=== PATIENT | female | born 1970 | race Caucasian/White ===

== ENCOUNTER 2017-07-16 21:33 | Emergency (ER) | payer OTHER ==
[2017-07-17] MEDS: ONDANSETRON (ODT) 4 MG TAB ODT (04:39)
== END 2017-07-17 06:31 | disposition home or self-care (01) ==
LOC: FTE 21:33
DX: R11.2 Nausea with vomiting, unspecified (principal)
CPT/HCPCS: 99283; Z7502

== ENCOUNTER 2018-01-14 09:36 | Day surgery (SDC) | payer OTHER ==
[2018-01-14] MEDS ORDERED: PROPOFOL 40 ML (11:51)
== END 2018-01-14 12:12 | disposition home or self-care (01) ==
LOC: GIL 09:36
DX: C18.7 Malignant neoplasm of sigmoid colon (principal); K29.50 Unspecified chronic gastritis without bleeding; B96.81 Helicobacter pylori [H. pylori] as the cause of diseases classified elsewhere; K21.9 Gastro-esophageal reflux disease without esophagitis; E78.5 Hyperlipidemia, unspecified
CPT/HCPCS: 43239; 88305; 88312

== ENCOUNTER 2018-04-01 10:23 | Inpatient (IN) | payer OTHER ==
[~2018-04-01 10:23] MED LIST: CEFAZOLIN 1 GM INJ
[2018-04-01] MEDS ORDERED: LACTATED RINGER'S 1,000 ML IV (12:30)
[2018-04-01] MEDS ORDERED: SOD CHLORIDE 0.9% 1,000 ML IV (12:30)
[2018-04-01] MEDS: metroNIDAZOLE 500 MG/NS (PMX) 100 ML IVPB ×2 (13:00→20:50)
[2018-04-01] MEDS ORDERED: BUPIVACAINE 0.25% (MPF) 30 ML INJ (13:18)
[2018-04-01] MEDS ORDERED: MIDAZOLAM 1 MG/ML 2 ML INJ (13:40)
[2018-04-01] MEDS ORDERED: FENTAnyl 50 MCG/ML VIAL (13:40)
[2018-04-01] MEDS ORDERED: ROPIVACAINE 0.2% 20 ML VIAL (13:40)
[2018-04-01] MEDS ORDERED: morphine SULFATE/PF (10 MG/10 ML) INJ (13:54)
[2018-04-01] MEDS: CEFAZOLIN 2 GM/50 ML (PMX) 50 ML (FOR WT < 120 KG) IVPB (14:15)
[2018-04-01] MEDS ORDERED: PHENYLephrine (100 MCG/ML) 5ML SYG (14:23)
[2018-04-01] MEDS ORDERED: ROCURONIUM 50 MG INJ (15:34)
[2018-04-01] MEDS ORDERED: SUGAMMADEX SODIUM 200 MG/2 ML VIAL IV (15:34)
[2018-04-01] MEDS ORDERED: LIDOCAINE 100 MG SYRINGE (15:34)
[2018-04-01] MEDS ORDERED: PROPOFOL 20 ML (15:34)
[2018-04-01] MEDS ORDERED: SUCCINYLCHOLINE CHLORIDE 100 MG/5 ML SYG IV (15:34)
[2018-04-01] MEDS ORDERED: HYDROmorphONE 0.5 MG/0.5 ML SYG IV (16:00)
[2018-04-01] MEDS: ACETAMINOPHEN 1000MG/100ML IV 100 ML IVPB (16:43)
[2018-04-01 16:51] LABS: ADD MAN DIFF? NO
[2018-04-01 16:52] LABS: BASOPHILS % 0.4 % (0.0-2.0); EOSINOPHILS # 0.2 10^3/ul (0.0-0.5); HEMATOCRIT 31.8 % (37.0-47.0); HEMOGLOBIN 10.1 g/dl (12.0-16.0); LYMPHOCYTES # 3.6 10^3/ul (0.8-2.9); LYMPHOCYTES % 46.2 % (15.0-51.0); MEAN CORPUSCULAR HEMOGLOBIN 25.4 pg (29.0-33.0); MEAN CORPUSCULAR HGB CONC 31.8 g/dl (32.0-37.0); MEAN CORPUSCULAR VOLUME 80.1 fl (82.0-101.0); MEAN PLATELET VOLUME 9.9 fl (7.4-10.4); MONOCYTE # 0.6 10^3/ul (0.3-0.9); MONOCYTES % 8.2 % (0.0-11.0); NEUTROPHIL # 3.3 10^3/ul (1.6-7.5); NEUTROPHILS % 42.9 % (39.0-77.0); PLATELET COUNT 292 10^3/UL (140-415); RED BLOOD COUNT 3.97 10^6/ul (4.20-5.40); RED CELL DISTRIBUTION WIDTH 15.2 % (11.5-14.5)
[2018-04-01 16:52] LABS: WHITE BLOOD COUNT 7.7 10^3/ul (4.8-10.8)
[2018-04-01 17:21] LABS: ANION GAP 10 (8-16); BLOOD UREA NITROGEN 20 mg/dl (7-20); CALCIUM 8.5 mg/dl (8.4-10.2); CARBON DIOXIDE 28 mmol/L (21-31); CHLORIDE 106 mmol/L (97-110); CREATININE 0.75 mg/dl (0.44-1.00); GLUCOSE 107 mg/dl (70-220); POTASSIUM 3.5 mmol/L (3.5-5.1); SODIUM 140 mmol/L (135-144)
[2018-04-01] MEDS: D5W-0.45 NACL + KCL 20 MEQ 1,000 ML IV (17:47)
[2018-04-01] MEDS: ONDANSETRON 4 MG INJ IV (19:53)
[2018-04-01] MEDS: CEFAZOLIN 1 GM/50 ML (PMX) 50 ML IVPB (19:53)
[2018-04-01] MEDS: FAMOTIDINE 20 MG TAB PO (20:58)
[2018-04-02] MEDS: ACETAMINOPHEN 1000MG/100ML IV 100 ML IVPB ×2 (00:19→06:56)
[2018-04-02] MEDS: CEFAZOLIN 1 GM/50 ML (PMX) 50 ML IVPB ×2 (04:20→12:33)
[2018-04-02 05:26] LABS: ADD MAN DIFF? NO
[2018-04-02 05:36] LABS: WHITE BLOOD COUNT 9.1 10^3/ul (4.8-10.8)
[2018-04-02 05:36] LABS: BASOPHILS % 0.1 % (0.0-2.0); EOSINOPHILS % 0.4 % (0.0-7.0); LYMPHOCYTES # 1.7 10^3/ul (0.8-2.9); LYMPHOCYTES % 18.5 % (15.0-51.0); MEAN CORPUSCULAR HEMOGLOBIN 25.8 pg (29.0-33.0); MEAN CORPUSCULAR HGB CONC 32.3 g/dl (32.0-37.0); MEAN CORPUSCULAR VOLUME 80.1 fl (82.0-101.0); MEAN PLATELET VOLUME 10.1 fl (7.4-10.4); MONOCYTE # 0.6 10^3/ul (0.3-0.9); MONOCYTES % 6.5 % (0.0-11.0); NEUTROPHIL # 6.7 10^3/ul (1.6-7.5); NEUTROPHILS % 74.2 % (39.0-77.0); PLATELET COUNT 273 10^3/UL (140-415); RED BLOOD COUNT 3.87 10^6/ul (4.20-5.40); RED CELL DISTRIBUTION WIDTH 14.9 % (11.5-14.5)
[2018-04-02] MEDS: metroNIDAZOLE 500 MG/NS (PMX) 100 ML IVPB ×2 (05:40→13:24)
[2018-04-02 05:55] LABS: ANION GAP 10 (8-16); BLOOD UREA NITROGEN 13 mg/dl (7-20); CALCIUM 8.3 mg/dl (8.4-10.2); CARBON DIOXIDE 27 mmol/L (21-31); CHLORIDE 104 mmol/L (97-110); CREATININE 0.76 mg/dl (0.44-1.00); GLUCOSE 118 mg/dl (70-220); POTASSIUM 4.1 mmol/L (3.5-5.1); SODIUM 137 mmol/L (135-144)
[2018-04-02] MEDS: ENOXAPARIN 40 MG/0.4 ML SYG SC (06:41)
[2018-04-02] MEDS: FAMOTIDINE 20 MG TAB PO ×2 (09:02→20:53)
[2018-04-02] MEDS: HYDROCODONE/APAP (5/325) TAB PO ×2 (11:04→20:53)
[2018-04-02] MEDS: ONDANSETRON 4 MG INJ IV (12:37)
[2018-04-02] MEDS: KETOROLAC 30 MG INJ IV ×2 (13:24→23:16)
[2018-04-02] MEDS: PATIENT'S OWN MEDICATION PO (20:58)
[2018-04-02] MEDS: LORAZEPAM 1 MG TAB PO (21:00)
[2018-04-02] MEDS ORDERED: SPECIAL NON-STANDARD MEDICATION PO (21:00)
[2018-04-02] MEDS ORDERED: LURASIDONE 40 MG PO (21:00)
[2018-04-03] MEDS: HYDROCODONE/APAP (5/325) TAB PO ×3 (01:19→07:19)
[2018-04-03 04:57] LABS: ADD MAN DIFF? NO
[2018-04-03 05:04] LABS: BASOPHILS % 0.3 % (0.0-2.0); EOSINOPHILS % 0.2 % (0.0-7.0); HEMATOCRIT 30.6 % (37.0-47.0); HEMOGLOBIN 9.8 g/dl (12.0-16.0); LYMPHOCYTES # 2.3 10^3/ul (0.8-2.9); LYMPHOCYTES % 26.9 % (15.0-51.0); MEAN CORPUSCULAR HEMOGLOBIN 25.7 pg (29.0-33.0); MEAN CORPUSCULAR VOLUME 80.1 fl (82.0-101.0); MEAN PLATELET VOLUME 9.4 fl (7.4-10.4); MONOCYTE # 0.6 10^3/ul (0.3-0.9); MONOCYTES % 7.4 % (0.0-11.0); NEUTROPHIL # 5.6 10^3/ul (1.6-7.5); NEUTROPHILS % 64.9 % (39.0-77.0); PLATELET COUNT 286 10^3/UL (140-415); RED BLOOD COUNT 3.82 10^6/ul (4.20-5.40); RED CELL DISTRIBUTION WIDTH 15.3 % (11.5-14.5)
[2018-04-03 05:04] LABS: WHITE BLOOD COUNT 8.7 10^3/ul (4.8-10.8)
[2018-04-03 05:31] LABS: ANION GAP 9 (8-16); BLOOD UREA NITROGEN 6 mg/dl (7-20); CALCIUM 8.4 mg/dl (8.4-10.2); CARBON DIOXIDE 28 mmol/L (21-31); CHLORIDE 107 mmol/L (97-110); CREATININE 0.78 mg/dl (0.44-1.00); GLUCOSE 123 mg/dl (70-220); POTASSIUM 3.7 mmol/L (3.5-5.1); SODIUM 140 mmol/L (135-144)
[2018-04-03] MEDS: ENOXAPARIN 40 MG/0.4 ML SYG SC (06:21)
[2018-04-03] MEDS: FAMOTIDINE 20 MG TAB PO (08:34)
== END 2018-04-03 11:15 | disposition home or self-care (01) | DRG 331 ==
LOC: REC 10:23 → MS1 17:25
PROC: 0DBN0ZZ Excision of Sigmoid Colon, Open Approach (ICD-10-PCS; principal; 2018-04-01 13:00)
PROC: 0DJD8ZZ Inspection of Lower Intestinal Tract, Via Natural or Artificial Opening Endoscopic (ICD-10-PCS; 2018-04-01 13:00)
DX: C18.7 Malignant neoplasm of sigmoid colon (principal); F32.9 Major depressive disorder, single episode, unspecified
CPT/HCPCS: 80048; 85025; 86850; 86900; 86901; 87086; 88307

== ENCOUNTER 2018-07-10 14:09 | Inpatient (IN) | payer OTHER ==
[2018-07-10] MEDS: SOD CHLORIDE 0.9% 1,000 ML IV ×2 (15:21→18:25)
[2018-07-10] MEDS: ONDANSETRON 4 MG INJ IV (15:21)
[2018-07-10] MEDS: morphine 4 MG/ML VIAL IV (15:22)
[2018-07-10 15:23] LABS: ALANINE AMINOTRANSFERASE 75 IU/L (13-69); ALBUMIN 3.6 g/dl (3.3-4.9); ALBUMIN/GLOBULIN RATIO 1.16; ALKALINE PHOSPHATASE 74 IU/L (42-121); ASPARTATE AMINO TRANSFERASE 77 IU/L (15-46); BILIRUBIN,INDIRECT 0.8 mg/dl (0-1.1); BILIRUBIN,TOTAL 0.8 mg/dl (0.2-1.3); BLOOD UREA NITROGEN 26 mg/dl (7-20); CALCIUM 8.5 mg/dl (8.4-10.2); CARBON DIOXIDE 26 mmol/L (21-31); CREATININE 0.72 mg/dl (0.44-1.00); Estimated GFR > 60 mL/min (>60); GLUCOSE 114 mg/dl (70-220); LIPASE 1223 U/L (23-300); POTASSIUM 3.8 mmol/L (3.5-5.1); SODIUM 135 mmol/L (135-144); TOTAL PROTEIN 6.7 g/dl (6.1-8.1)
[2018-07-10 15:34] LABS: ABNORMAL IP MESSAGE 1; HEMATOCRIT 32.1 % (37.0-47.0); HEMOGLOBIN 10.8 g/dl (12.0-16.0); MEAN CORPUSCULAR HEMOGLOBIN 26.7 pg (29.0-33.0); MEAN CORPUSCULAR HGB CONC 33.6 g/dl (32.0-37.0); MEAN CORPUSCULAR VOLUME 79.3 fl (82.0-101.0); MEAN PLATELET VOLUME 8.7 fl (7.4-10.4); PLATELET COUNT 175 10^3/UL (140-415); RED BLOOD COUNT 4.05 10^6/ul (4.20-5.40); RED CELL DISTRIBUTION WIDTH 23.8 % (11.5-14.5)
[2018-07-10 15:34] LABS: WHITE BLOOD COUNT 5.2 10^3/ul (4.8-10.8)
[2018-07-10 15:35] LABS: ADD MAN DIFF? YES; POSITIVE DIFF @See below
[2018-07-10 15:36] LABS: ANION GAP 8 (5-13); CHLORIDE 101 mmol/L (97-110)
[2018-07-10] MEDS ORDERED: ONDANSETRON 4 MG INJ IV ×2 (16:00→18:00)
[2018-07-10] MEDS ORDERED: ACETAMINOPHEN 325 MG TAB PO ×2 (16:00→18:00)
[2018-07-10 16:03] LABS: INR 1.08; PROTIME 14.1 Sec (11.9-14.9); PT RATIO 1.1
[2018-07-10 16:04] LABS: PARTIAL THROMBOPLASTIN TIME 21.8 Sec (23.0-35.0)
[2018-07-10 16:20] LABS: ANISOCYTOSIS 2+ (0-0); BAND NEUTROPHILS #M 0.6 10^3/ul (0.0-0.6); BAND NEUTROPHILS % (M) 13 % (0-4); BASOPHIL #M 0.1 10^3/ul (0.0-0.0); BASOPHILS % (M) 2 % (0-2); HYPOCHROMASIA 1+ (0-0); LYMPHOCYTES #M 1.7 10^3/ul (0.8-2.9); LYMPHOCYTES % (M) 33 % (15-51); MICROCYTOSIS 2+ (0-0); MONOCYTES % (M) 20 % (0-11); PLATELET ESTIMATE NORMAL; POIKILOCYTOSIS 1+ (0-0); POLYCHROMASIA 1+ (0-0); REACTIVE LYMPHOCYTES #M 0.1 10^3/ul (0.0-0.0); REACTIVE LYMPHOCYTES% (M) 2 % (0-0); SEG NEUT #M 1.6 10^3/ul (1.6-7.5); SEGMENTED NEUTROPHILS (M) % 30 % (39-77); SMUDGE%M 4 % (0-0)
[2018-07-10] MEDS ORDERED: LORAZEPAM 2 MG INJ IV (18:00)
[2018-07-10] MEDS ORDERED: DOCUSATE SODIUM 100 MG CAP PO (18:00)
[2018-07-10] MEDS ORDERED: hydrALAzine 20 MG INJ IV (18:00)
[2018-07-10] MEDS ORDERED: ALBUTEROL/IPRATROPIUM (NEB) 3 ML AMP HHN (18:00)
[2018-07-10] MEDS ORDERED: NITROGLYCERIN (SL) 0.4 MG TAB SL (18:00)
[2018-07-10] MEDS ORDERED: NACL 0.9% 3 ML SYG IV (18:00)
[2018-07-10] MEDS ORDERED: MAGNESIUM HYDROXIDE 30ML CUP PO (18:00)
[2018-07-10 18:12] LABS: FREE T4 (FREE THYROXINE) 1.58 ng/dl (0.64-1.79)
[2018-07-10] MEDS ORDERED: [UNRECOGNIZED DRUG - REMARK] XX (19:30)
[2018-07-10] MEDS: LURASIDONE 40 MG PO (19:49)
[2018-07-10] MEDS ORDERED: PROPRANOLOL 10 MG TAB PO (20:00)
[2018-07-10] MEDS: PROPRANOLOL 10 MG TAB PO (20:08)
[2018-07-10] MEDS: HYDROmorphONE 0.5 MG/0.5 ML SYG IV (20:18)
[2018-07-10] MEDS: HEPARIN 5,000 UNIT/1 ML VIAL SC (20:38)
[2018-07-11] MEDS ORDERED: ONDANSETRON 4 MG INJ IV
[2018-07-11] MEDS ORDERED: ONDANSETRON INJ 8 MG in SOD CHLORIDE 0.9% 50 ML IV
[2018-07-11] MEDS: HYDROmorphONE 0.5 MG/0.5 ML SYG IV ×4 (00:26→23:06)
[2018-07-11] MEDS: SOD CHLORIDE 0.9% 1,000 ML IV ×3 (04:43→18:34)
[2018-07-11] MEDS: PANTOPRAZOLE 40 MG INJ IV (05:40)
[2018-07-11 06:42] LABS: ABNORMAL IP MESSAGE 1; HEMATOCRIT 29.5 % (37.0-47.0); HEMOGLOBIN 9.7 g/dl (12.0-16.0); MEAN CORPUSCULAR HEMOGLOBIN 26.4 pg (29.0-33.0); MEAN CORPUSCULAR HGB CONC 32.9 g/dl (32.0-37.0); MEAN CORPUSCULAR VOLUME 80.2 fl (82.0-101.0); MEAN PLATELET VOLUME 9.3 fl (7.4-10.4); PLATELET COUNT 174 10^3/UL (140-415); RED BLOOD COUNT 3.68 10^6/ul (4.20-5.40); RED CELL DISTRIBUTION WIDTH 24.7 % (11.5-14.5)
[2018-07-11 06:42] LABS: WHITE BLOOD COUNT 5.4 10^3/ul (4.8-10.8)
[2018-07-11 07:03] LABS: POSITIVE DIFF @See below
[2018-07-11 07:04] LABS: ADD MAN DIFF? YES
[2018-07-11 07:06] LABS: LIPASE 1042 U/L (23-300)
[2018-07-11 07:11] LABS: HEMOGLOBIN A1C 5.9 % (0-5.9)
[2018-07-11 07:11] LABS: ANION GAP 6 (5-13); BLOOD UREA NITROGEN 14 mg/dl (7-20); CALCIUM 7.9 mg/dl (8.4-10.2); CARBON DIOXIDE 26 mmol/L (21-31); CHLORIDE 104 mmol/L (97-110); CHOL/HDL RATIO 3.3 RATIO; CHOLESTEROL 117 mg/dl (100-200); CREATININE 0.63 mg/dl (0.44-1.00); Estimated GFR > 60 mL/min (>60); GLUCOSE 101 mg/dl (70-220); HDL CHOLESTEROL 35 mg/dl (37-92); LDL CHOLESTEROL,CALCULATED 51 mg/dl; MAGNESIUM 1.7 mg/dl (1.7-2.5); PHOSPHORUS 3.6 mg/dl (2.5-4.9); POTASSIUM 3.4 mmol/L (3.5-5.1); SODIUM 136 mmol/L (135-144); TRIGLYCERIDES 156 mg/dl (0-149)
[2018-07-11 07:23] LABS: ADD UMIC YES; UR ASCORBIC ACID NEGATIVE (NEGATIVE); UR BACTERIA FEW /HPF (NONE SEEN); UR BILIRUBIN (Dip) NEGATIVE (NEGATIVE); UR BLOOD (Dip) 1+ mg/dL (NEGATIVE); UR CLARITY CLEAR (CLEAR); UR COLOR YELLOW (YELLOW); UR GLUCOSE (Dip) NEGATIVE (NEGATIVE); UR KETONES (Dip) NEGATIVE (NEGATIVE); UR LEUKOCYTE ESTERASE (Dip) NEGATIVE Leu/ul (NEGATIVE); UR NITRITE (Dip) NEGATIVE (NEGATIVE); UR RBC 3 /HPF (0-5); UR SPECIFIC GRAVITY (Dip) 1.017 (1.003-1.030); UR SQUAMOUS EPITHELIAL CELL FEW /HPF (FEW); UR TOTAL PROTEIN (Dip) NEGATIVE (NEGATIVE); UR UROBILINOGEN (Dip) 1+ mg/dL (NEGATIVE); UR WBC 2 /HPF (0-5)
[2018-07-11 07:37] LABS: ANISOCYTOSIS 2+ (0-0); BAND NEUTROPHILS % (M) 1 % (0-4); BASOPHIL #M 0.1 10^3/ul (0.0-0.0); BASOPHILS % (M) 3 % (0-2); ELLIPTO 1+ (0-0); EOSINOPHILS % (M) 2 % (0-7); LYMPHOCYTES #M 2.5 10^3/ul (0.8-2.9); LYMPHOCYTES % (M) 47 % (15-51); MICROCYTOSIS 2+ (0-0); MONOCYTE #M 0.5 10^3/ul (0.3-0.9); MONOCYTES % (M) 11 % (0-11); PLATELET ESTIMATE NORMAL; POIKILOCYTOSIS 1+ (0-0); SEG NEUT #M 1.9 10^3/ul (1.6-7.5); SEGMENTED NEUTROPHILS (M) % 36 % (39-77); SMUDGE%M 21 % (0-0)
[2018-07-11] MEDS: HEPARIN 5,000 UNIT/1 ML VIAL SC ×2 (09:00→19:47)
[2018-07-11] MEDS: MAGNESIUM SULFATE 2 GM/50 ML 50 ML IVPB (10:39)
[2018-07-11] MEDS: PROPRANOLOL 10 MG TAB PO ×2 (10:41→19:42)
[2018-07-11 10:52] LABS: IRON 25 ug/dl (35-150)
[2018-07-11 11:03] LABS: % IRON SATURATION 8 % SAT (22-52); TOTAL IRON BINDING CAPACITY 313 ug/dl (241-421)
[2018-07-11 12:03] LABS: FERRITIN 57.4 ng/ml (6.2-137.0)
[2018-07-11] MEDS: POTASSIUM CHLORIDE 100 ML IVPB ×2 (12:20→15:35)
[2018-07-11] MEDS: LURASIDONE 40 MG PO (18:27)
[2018-07-11] MEDS: HYDROCODONE/APAP (5/325) TAB PO (19:42)
[2018-07-12] MEDS: HYDROCODONE/APAP (5/325) TAB PO (03:07)
[2018-07-12] MEDS: SOD CHLORIDE 0.9% 1,000 ML IV (03:54)
[2018-07-12] MEDS: PANTOPRAZOLE 40 MG INJ IV (05:39)
[2018-07-12 06:06] LABS: ADD MAN DIFF? NO
[2018-07-12 06:08] LABS: ABNORMAL IP MESSAGE 1; BASOPHILS % 0.2 % (0.0-2.0); EOSINOPHILS # 0.1 10^3/ul (0.0-0.5); HEMATOCRIT 30.4 % (37.0-47.0); HEMOGLOBIN 10.1 g/dl (12.0-16.0); LYMPHOCYTES % 39.4 % (15.0-51.0); MEAN CORPUSCULAR HEMOGLOBIN 26.8 pg (29.0-33.0); MEAN CORPUSCULAR HGB CONC 33.2 g/dl (32.0-37.0); MEAN CORPUSCULAR VOLUME 80.6 fl (82.0-101.0); MONOCYTES % 20.1 % (0.0-11.0); NEUTROPHILS % 38.7 % (39.0-77.0); PLATELET COUNT 182 10^3/UL (140-415); RED BLOOD COUNT 3.77 10^6/ul (4.20-5.40); RED CELL DISTRIBUTION WIDTH 24.8 % (11.5-14.5)
[2018-07-12 06:08] LABS: WHITE BLOOD COUNT 5.1 10^3/ul (4.8-10.8)
[2018-07-12 06:35] LABS: POSITIVE DIFF @See below
[2018-07-12 06:53] LABS: ANION GAP 9 (5-13); BLOOD UREA NITROGEN 7 mg/dl (7-20); CALCIUM 8.3 mg/dl (8.4-10.2); CARBON DIOXIDE 25 mmol/L (21-31); CHLORIDE 103 mmol/L (97-110); CREATININE 0.54 mg/dl (0.44-1.00); Estimated GFR > 60 mL/min (>60); GLUCOSE 105 mg/dl (70-220); POTASSIUM 3.5 mmol/L (3.5-5.1); SODIUM 137 mmol/L (135-144)
[2018-07-12] MEDS: HEPARIN 5,000 UNIT/1 ML VIAL SC (08:51)
[2018-07-12] MEDS: PROPRANOLOL 10 MG TAB PO (09:37)
== END 2018-07-12 12:25 | disposition home or self-care (01) | DRG 392 ==
LOC: E/R 14:09 → PP2 15:49
DX: K52.9 Noninfective gastroenteritis and colitis, unspecified (principal); F41.9 Anxiety disorder, unspecified; F32.9 Major depressive disorder, single episode, unspecified; Z85.038 Personal history of other malignant neoplasm of large intestine; Z92.21 Personal history of antineoplastic chemotherapy; Z92.3 Personal history of irradiation; E86.0 Dehydration; D50.9 Iron deficiency anemia, unspecified
CPT/HCPCS: 36415; 74176; 80048; 80053; 80061; 81001; 81025; 82728; 83036; 83540; 83690; 83735; 84100; 84439; 84443; 85025; 85610; 85730; 87086; 96374; 96375; 97162; 99285-25; G0378